=== PATIENT | male | born 1985 | race Caucasian/White ===

== ENCOUNTER → 2016-12-23 | Day surgery (SDC) | payer OTHER ==
[2015-02-03 06:23] VITALS: BP 133/88
[~2016-12-23] MED LIST: AUGMENTIN 875-1 EACH PO; CORTISPORIN TC10 ML OT
== END ==
LOC: MSO 10:30
DX: L72.0 Epidermal cyst (principal)
CPT/HCPCS: 14228; A4649

== ENCOUNTER → 2017-02-11 | Outpatient (CLI) | payer OTHER ==
[2015-02-03 06:23] VITALS: BP 133/88
== END ==
LOC: LAB 11:25
DX: K21.9 Gastro-esophageal reflux disease without esophagitis (principal); K59.00 Constipation, unspecified; R14.0 Abdominal distension (gaseous)

== ENCOUNTER → 2017-02-12 | Outpatient (CLI) | payer OTHER ==
[2015-02-03 06:23] VITALS: BP 133/88
[2017-02-12 10:22] LABS: HEMATOCRIT 44.8 % (42.0-52.0); HEMOGLOBIN 15.1 g/dL (13.5-18.0); LYMPH# 2.9 (1.50-4.00); MEAN CELL VOLUME 85 fl (78-100); MEAN CORPUSCULAR HEMOGLOBIN 29 pg (27-31); MEAN CORPUSCULAR HGB CONC 34 g/dL (33-37); MEAN PLATELET VOLUME 9.9 fl (7.4-10.4); MONO # 0.6 (0.20-0.80); NEU # 4.9 (1.40-6.50); PLATELET COUNT 296 K/mm3 (130-400); RED BLOOD COUNT 5.28 M/mm3 (4.20-5.60); RED CELL DISTRIBUTION WIDTH 12.1 % (11.5-14.5); WHITE BLOOD COUNT 9.1 K/mm3 (4.8-10.8)
[2017-02-12 10:28] LABS: ALBUMIN 4.6 g/dL (3.5-5.0); BUN/CREATININE RATIO 13.8 (6.0-26.0); CALCIUM 9.4 mg/dL (8.4-10.2); POTASSIUM 3.9 mmol/L (3.6-5.0); TOTAL BILIRUBIN 0.7 mg/dL (0.2-1.3); TOTAL PROTEIN 7.8 g/dL (6.3-8.2)
[2017-02-12 10:32] LABS: EOS # 0.7 (0.04-0.40); EOS % 7.7 % (0.0-4.0)
== END ==
LOC: LAB 10:00
PROVIDERS: Family Medicine
DX: K21.9 Gastro-esophageal reflux disease without esophagitis (principal); K59.00 Constipation, unspecified; R14.0 Abdominal distension (gaseous)

== ENCOUNTER → 2018-11-16 | Outpatient (CLI) | payer BC ==
[2015-02-03 06:23] VITALS: BP 133/88
[2018-11-16 15:20] LABS: EOS # 0.6 (0.04-0.40); HEMATOCRIT 44.4 % (42.0-52.0); HEMOGLOBIN 15.1 g/dL (13.5-18.0); LYMPH# 3.1 (1.50-4.00); MEAN CELL VOLUME 85 fl (78-100); MEAN CORPUSCULAR HEMOGLOBIN 29 pg (27-31); MEAN CORPUSCULAR HGB CONC 34 g/dL (33-37); MEAN PLATELET VOLUME 9.7 fl (7.4-10.4); MONO # 0.8 (0.20-0.80); NEU # 5.5 (1.40-6.50); PLATELET COUNT 268 K/mm3 (130-400); WHITE BLOOD COUNT 10.1 K/mm3 (4.8-10.8)
[2018-11-16 15:22] LABS: EOS % 5.4 % (0.0-4.0)
[2018-11-16 15:30] LABS: POTASSIUM 3.7 mmol/L (3.5-5.1)
[2018-11-16 15:31] LABS: ALBUMIN 4.8 g/dL (3.5-5.0)
[2018-11-16 15:32] LABS: CALCIUM 10.1 mg/dL (8.3-10.5)
[2018-11-16 15:33] LABS: TOTAL PROTEIN 8.5 g/dL (6.4-8.3)
[2018-11-16 15:35] LABS: TOTAL BILIRUBIN 0.5 mg/dL (0.2-1.2)
[2018-11-17 17:29] LABS: HEPATITIS C ANTIBODY Negative (Negative)
== END ==
LOC: LAB 14:49
PROVIDERS: Family Medicine
DX: Z00.00 Encounter for general adult medical examination without abnormal findings (principal); Z13.220 Encounter for screening for lipoid disorders; R53.83 Other fatigue

== ENCOUNTER → 2018-11-20 | Outpatient (CLI) | payer BC ==
[~2018-11-20] VITALS: Ht 160 cm; Wt 72.7 kg
[2018-11-20 08:30] VITALS: BP 136/82
[2018-11-20 09:16] LABS: HEMATOCRIT 45.8 % (42.0-52.0); HEMOGLOBIN 15.4 g/dL (13.5-18.0); MEAN PLATELET VOLUME 9.8 fl (7.4-10.4); RED BLOOD COUNT 5.35 M/mm3 (4.20-5.60); RED CELL DISTRIBUTION WIDTH 12.1 % (11.5-14.5); WHITE BLOOD COUNT 10.3 K/mm3 (4.8-10.8)
[2018-11-20 09:28] LABS: ALBUMIN 4.9 g/dL (3.5-5.0)
[2018-11-20 09:29] LABS: CALCIUM 10.5 mg/dL (8.3-10.5)
[2018-11-20 09:31] LABS: TOTAL PROTEIN 9.4 g/dL (6.4-8.3)
[2018-11-20 09:32] LABS: TOTAL BILIRUBIN 0.8 mg/dL (0.2-1.2)
[2018-11-20 10:00] VITALS: BP 127/74
== END ==
LOC: AMSURD 08:13
PROVIDERS: Nurse Practitioner
DX: R11.2 Nausea with vomiting, unspecified (principal); R19.7 Diarrhea, unspecified
CPT/HCPCS: J2405; J7030

== ENCOUNTER → 2018-11-26 | Outpatient (CLI) | payer BC ==
[2018-11-20 10:00] VITALS: BP 127/74
== END ==
LOC: RAD 07:00
DX: K76.0 Fatty (change of) liver, not elsewhere classified (principal)